=== PATIENT | female | born 1950 | race Caucasian/White ===

== ENCOUNTER 2018-09-07 15:13 | Emergency (ER) | payer MEDICARE, OTHER ==
[2018-09-07] MEDS ORDERED: Iopamidol 612 MG/ML 100 ML Bottle IVPUSH ONE (15:27)
[2018-09-07] MEDS ORDERED: Ondansetron 4 MG/2 ML SDV IV ONE (15:29)
[2018-09-07] MEDS ORDERED: Morphine 2 MG/ML Syringe IVPUSH ONE (15:29)
--- NOTE | 2018-09-07 15:42 | EDM.PDOC ---
ED HPI GENERAL MEDICAL PROBLEM - General Chief Complaint: Abdominal Pain Stated Complaint: ABDOMINAL PAIN Time Seen by Provider: 09/07/18 15:32 Source of Information: Reports: Patient, EMS History Limitations: Reports: No Limitations - History of Present Illness INITIAL COMMENTS - FREE TEXT/NARRATIVE: developed sudden onset generalized abd pain while cleaning bathroom, wasn't mixing any chemicals or straining, had to lay on floor on right side which is more comfortable. has blood clots and being Tx @ [facility] by haematology with xaralto, last visit was told clot extending up to her flank area. has no GB and had total hysterectomy and donated one kidney but still has appy. Abdominal Pain Score (Numeric/FACES): 10 - Related Data Allergies Allergy/AdvReac Type Severity Reaction Status Date / Time No Known Allergies Allergy Verified 09/07/18 15:15 Home Meds: Home Meds Multivitamin [Multi Vitamin Daily] 1 each PO DAILY 12/19/13 [History] Calcium Carbonate/Vitamin D3 [Calcium 500 + Vit D 200 Tablet] 1 tab PO BID 10/27 [History] Cholecalciferol (Vitamin D3) [Vitamin D3] 400 intnl unit PO DAILY 10/27/14 [ History] Ibuprofen [Advil] 200 mg PO DAILY 10/27/14 [History] Simvastatin [Zocor] 10 mg PO DAILY 10/27/14 [History] Rivaroxaban [Xarelto] 20 mg PO DAILY 09/07/18 [History] Past Medical History Cardiovascular History: Reports: High Cholesterol, Other (See Below) Other Cardiovascular History: blood clot December 2017 that ran from left foot up to left flank. - Past Surgical History GI Surgical History: Reports: Other (See Below) Other GI Surgeries/Procedures: donated one kidney Social & Family History - Tobacco Use Smoking Status *Q: Current Every Day Smoker Years of Tobacco use: 14 Packs/Tins Daily: 0.5 - Caffeine Use Caffeine Use: Reports: Soda - Recreational Drug Use Recreational Drug Use: No - Living Situation & Occupation Living situation: Reports: , with Family Occupation: Employed ED ROS GENERAL - Review of Systems Review Of Systems: ROS reveals no pertinent complaints other than HPI. ED EXAM, GI/ABD - Physical Exam Exam: See Below Exam Limited By: No Limitations General Appearance: Alert, WD/WN, Moderate Distress, Other (pain) Ears: Hearing Grossly Normal Throat/Mouth: Normal Voice, No Airway Compromise Head: Atraumatic Neck: Non-Tender, Full Range of Motion Respiratory/Chest: No Respiratory Distress Cardiovascular: Regular Rate, Rhythm GI/Abdominal Exam: Guarding, Tender, Other (generalized, ). No: Distended, Rigid, Rebound Neurological: Alert, Oriented, Normal Cognition, No Motor/Sensory Deficits Psychiatric: Tearful Skin Exam: Warm, Dry, Normal Color Lymphatic: No Adenopathy Course - Vital Signs Last Recorded V/S: Last Vital Signs Temp 37.3 C 09/07/18 15:15 Pulse 81 09/07/18 17:02 Resp 16 09/07/18 17:02 BP 140/77 09/07/18 17:02 Pulse Ox 100 09/07/18 17:02 - Orders/Labs/Meds Orders: Active Orders 24 hr Category Date Time Status EKG 12 Lead [EKG Documentation Completion] [RC] STAT Care 09/07/18 15:43 Active AMYLASE [CHEM] Stat Lab 09/07/18 15:29 Received LIPASE [CHEM] Stat Lab 09/07/18 15:29 Received Labs: Laboratory Tests 09/07/18 09/07/18 09/07/18 Range/Units 15:29 15:29 15:29 WBC 9.1 (5.0-10.0) 10^3/uL RBC 4.77 (4.2-5.4) 10^6/uL Hgb 14.6 (12.0-16.0) g/dL Hct 41.4 (37.0-47.0) % MCV 86.8 (80-100) fL MCH 30.6 (27.0-34.0) pg MCHC 35.3 H (33.0-35.0) g/dL Plt Count 168 (150-450) 10^3/uL Neut % (Auto) 78.2 H (42.2-75.2) % Lymph % (Auto) 12.5 L (20.5-50.1) % Sandoval % (Auto) 7.4 (2-8) % Eos % (Auto) 1.7 (1.0-3.0) % Baso % (Auto) 0.2 (0.0-1.0) % PT 10.2 (9.0-12.0) SEC INR 1.0 (0.9-1.2) APTT 28.2 (22.0-34.0) SEC D-Dimer, Quantitative (0-400) ng/mL Sodium 140 (135-145) mmol/L Potassium 3.8 (3.6-5.0) mmol/L Chloride 106 (101-111) mmol/L Carbon Dioxide 23.0 (21.0-31.0) mmol/L Anion Gap 14.8 BUN 21 H (7-18) mg/dL Creatinine 1.3 (0.6-1.3) mg/dL Est Cr Clr Drug Dosing 38.77 mL/min Estimated GFR (MDRD) 41 BUN/Creatinine Ratio 16.15 Glucose 99 (74-105) mg/dL Calcium 9.3 (8.4-10.2) mg/dl Total Bilirubin 0.9 (0.2-1.0) mg/dL AST 143 H (10-42) IU/L ALT 70 H (10-60) IU/L Alkaline Phosphatase 72 (42-121) IU/L Troponin I < 0.02 (0.00-0.02) ng/ml Total Protein 6.5 L (6.7-8.2) g/dl Albumin 3.9 (3.2-5.5) g/dl Globulin 2.6 Albumin/Globulin Ratio 1.50 03/11/19 Range/Units 15:29 WBC (5.0-10.0) 10^3/uL RBC (4.2-5.4) 10^6/uL Hgb (12.0-16.0) g/dL Hct (37.0-47.0) % MCV (80-100) fL MCH (27.0-34.0) pg MCHC (33.0-35.0) g/dL Plt Count (150-450) 10^3/uL Neut % (Auto) (42.2-75.2) % Lymph % (Auto) (20.5-50.1) % Sandoval % (Auto) (2-8) % Eos % (Auto) (1.0-3.0) % Baso % (Auto) (0.0-1.0) % PT (9.0-12.0) SEC INR (0.9-1.2) APTT (22.0-34.0) SEC D-Dimer, Quantitative < 100 (0-400) ng/mL Sodium (135-145) mmol/L Potassium (3.6-5.0) mmol/L Chloride (101-111) mmol/L Carbon Dioxide (21.0-31.0) mmol/L Anion Gap BUN (7-18) mg/dL Creatinine (0.6-1.3) mg/dL Est Cr Clr Drug Dosing mL/min Estimated GFR (MDRD) BUN/Creatinine Ratio Glucose (74-105) mg/dL Calcium (8.4-10.2) mg/dl Total Bilirubin (0.2-1.0) mg/dL AST (10-42) IU/L ALT (10-60) IU/L Alkaline Phosphatase (42-121) IU/L Troponin I (0.00-0.02) ng/ml Total Protein (6.7-8.2) g/dl Albumin (3.2-5.5) g/dl Globulin Albumin/Globulin Ratio Meds: Medications Discontinued Medications Generic Name Dose Route Start Last Admin Trade Name Freq PRN Reason Stop Dose Admin Hydromorphone HCl 1 mg 09/07/18 16:15 09/07/18 16:29 Dilaudid IVPUSH 09/07/18 16:16 1 mg ONETIME ONE Administration Iopamidol 100 ml 09/07/18 15:27 Isovue-300 (61%) IVPUSH 09/07/18 15:28 ONETIME ONE Morphine Sulfate 2 mg 09/07/18 15:29 09/07/18 15:38 Morphine IVPUSH 09/07/18 15:30 2 mg ONETIME ONE Administration Ondansetron HCl 4 mg 09/07/18 15:29 09/07/18 15:36 Zofran IV 09/07/18 15:30 4 mg ONETIME ONE Administration - Re-Assessments/Exams Free Text/Narrative Re-Assessment/Exam: 09/07/18 17:[address] Rojas @ who kindly accepted pt. Departure - Departure Time of Disposition: 17:25 Disposition: DC/Tfer to Acute Hospital 02 Condition: Fair Clinical Impression: Pancreatitis Qualifiers: Chronicity: acute Pancreatitis type: unspecified pancreatitis type Acute pancreatitis complication: unspecified Qualified Code(s): K85.90 - Acute pancreatitis without necrosis or infection, unspecified - Discharge Information Forms: Interfacility Transfer EMTALA - My Orders Last 24 Hours: My Active Orders 09/07/18 15:29 AMYLASE [CHEM] Stat LIPASE [CHEM] Stat 09/07/18 15:43 EKG 12 Lead [EKG Documentation Completion] [RC] STAT - Assessment/Plan Last 24 Hours: My Active Orders 09/07/18 15:29 AMYLASE [CHEM] Stat LIPASE [CHEM] Stat 09/07/18 15:43 EKG 12 Lead [EKG Documentation Completion] [RC] STAT
[2018-09-07 16:07] LABS: ANION GAP 14.8; CHLORIDE,CL 106 mmol/L (101-111); SODIUM,NA 140 mmol/L (135-145)
[2018-09-07] MEDS ORDERED: HYDROmorphone 1 MG/ML Syringe IVPUSH ONE ×2 (16:15→17:56)
--- NOTE | 2018-09-07 16:49 | CT ---
Clinical history: 68-year-old 160 pound diabetic female smoker with severe abdominal/flank pain, coronary artery disease (stents), history breast cancer (right mastectomy), hysterectomy and surgical removal left kidney (donated brother 1984) .... Now has stage III chronic kidney disease and being treated for lower extremity "DVT". Scan technique: Volume acquisition of data from the abdomen and pelvis obtained without oral contrast on emergency basis during intravenous ministration 75 cc nonionic Isovue contrast (3.0 cm/s via injector) while patient lying supine on the Siemens multi slice scanner [place], [place]. All data archived in the PACS system for storage, reformatting axial/sagittal/coronal planes and study. Interpretation: 1. Diseased gallbladder (dependent intraluminal stones) with what appears to be an associated mild ileus. No abnormal dilatation of the intra or extra hepatic biliary duct and normal-appearing pancreas. Liver and spleen unremarkable. No hernias. 2. Densely calcified "cast" normal caliber aortoiliac vessels i.e. no sign of aneurysm or dissection. No bowel ischemia. 3. Left nephrectomy. Solitary tiny subcentimeter cyst upper pole cortex remaining right kidney. No solid renal cortical mass lesion, nephrolithiasis or signs of obstructive uropathy on the right. Symmetrically distended normal urinary bladder. 4. No abdominal or pelvic mass lesion and no sign of mesenteric or retroperitoneal lymphadenopathy. No inflammatory "dirty" peritoneal fat. No ascites or free intraperitoneal air. Surgically absent uterus and no adnexal mass lesions. 5. Osteopenia and mildly exaggerated lumbar lordosis with some scattered spondylosis. No fracture/dislocation lumbar spine. 6. Normal cardiac silhouette. Lung bases clear. Right mastectomy. 7. No sign of pelvic, retroperitoneal, or flank hematoma. No current evidence of acute intraperitoneal bleed. CONCLUSION: Cholelithiasis. Left nephrectomy. Right mastectomy. Abnormal atheromatous disease. Hysterectomy.
[2018-09-07 17:02] VITALS: BP 140/77
== END 2018-09-07 18:14 ==
LOC: DL.ED 15:13
DX: K85.90 Acute pancreatitis without necrosis or infection, unspecified (principal); F17.210 Nicotine dependence, cigarettes, uncomplicated; Z79.899 Other long term (current) drug therapy; Z79.01 Long term (current) use of anticoagulants
CPT/HCPCS: 36415; 74177; 80053; 82150; 83690; 84484; 85025; 85379; 85610; 85730; 93005; 96374; 96375; 96376; 99285; J1170; J2270; J2405; Q9967

== ENCOUNTER 2019-04-28 01:10 | Emergency (ER) | payer MEDICARE, OTHER ==
[2019-04-28] MEDS ORDERED: Acetaminophen/HYDROcodone 325-10 MG Tab PO ONE (01:11)
[2019-04-28] MEDS ORDERED: Cyclobenzaprine 10 MG Tab PO ONE ×2 (01:11→01:24)
[2019-04-28 01:19] VITALS: PULSE 89
[2019-04-28] MEDS ORDERED: HYDROmorphone 1 MG/ML Syringe IVPUSH ONE (01:23)
[2019-04-28 02:14] VITALS: BP 167/74
[2019-04-28] MEDS ORDERED: Acetaminophen/HYDROcodone 325-10 MG Tab ONE (02:24)
[2019-04-28] MEDS ORDERED: Cyclobenzaprine 10 MG Tab ONE (02:24)
--- NOTE | 2019-04-28 02:32 | EDM.PDOC ---
ED HPI GENERAL MEDICAL PROBLEM - General Chief Complaint: Neck Problem Stated Complaint: NECK PAIN Time Seen by Provider: 04/28/19 01:20 Source of Information: Reports: Patient History Limitations: Reports: No Limitations - History of Present Illness INITIAL COMMENTS - FREE TEXT/NARRATIVE: ED ambulatory with spouse with c/o sever left neck pain, worse with movement. Woke from sleep with pain, Radiates from base of scalp to left shoulder, no numbness or tingling., No weakness noted. No recent change in activity Remote hx C5 surgery secondary to injury. No problems since. . Left Neck Pain Score (Numeric/FACES): 6 - Related Data Allergies Allergy/AdvReac Type Severity Reaction Status Date / Time No Known Allergies Allergy Verified 04/28/19 01:16 Home Meds: Home Meds Multivitamin [Multi Vitamin Daily] 1 each PO DAILY 12/19/13 [History] Calcium Carbonate/Vitamin D3 [Calcium 500 + Vit D 200 Tablet] 1 tab PO BID 10/27 [History] Cholecalciferol (Vitamin D3) [Vitamin D3] 400 intnl unit PO DAILY 10/27/14 [ History] Ibuprofen [Advil] 200 mg PO DAILY 10/27/14 [History] Simvastatin [Zocor] 10 mg PO DAILY 10/27/14 [History] Rivaroxaban [Xarelto] 20 mg PO DAILY 09/07/18 [History] Past Medical History HEENT History: Reports: Impaired Vision Cardiovascular History: Reports: High Cholesterol, Other (See Below) Other Cardiovascular History: blood clot December 2017 that ran from left foot up to left flank. [employer]END[employer] History: Reports: Oncologic (Cancer) History: Reports: Breast - Past Surgical History GI Surgical History: Reports: Other (See Below) Other GI Surgeries/Procedures: donated one kidney Female Surgical History: Reports: Hysterectomy Social & Family History - Family History Family Medical History: Noncontributory - Tobacco Use Smoking Status *Q: Current Every Day Smoker Years of Tobacco use: 51 Packs/Tins Daily: 0.5 Used Tobacco, but Quit: No Second Hand Smoke Exposure: Yes - Caffeine Use Caffeine Use: Reports: Coffee, Soda - Recreational Drug Use Recreational Drug Use: No - Living Situation & Occupation Living situation: Reports: , with Family Occupation: Employed ED ROS GENERAL - Review of Systems Review Of Systems: ROS reveals no pertinent complaints other than HPI. ED EXAM, UPPER BACK/NECK PAIN - Physical Exam Exam: See Below Exam Limited By: No Limitations General Appearance: Alert, Severe Distress, Thin Eye Exam: Bilateral Eye: EOMI Ears Exam: Normal External Exam Nose Exam: Normal Inspection Throat/Mouth Exam: Normal Inspection, Normal Lips, Normal Voice Head Exam: Atraumatic, Normocephalic Neck Exam: Muscle Spasm, Paraspinous Muscle Tender, Stiff Neck, Tenderness, Tender Lateral. No: Spinous Processes Tender, Tender Midline Nexus Criteria: No: Posterior, Midline Cervical Tenderness, Evidence of Intoxication, Altered Level of Consciousness, Focal Neurological Deficit, Painful Distraction Injuries Cardiovascular/Respiratory: Regular Rate, Rhythm, Normal Peripheral Pulses GI/Abdominal: Soft Back Exam: Full Range of Motion Extremities: Normal Inspection Neurologic: No Motor/Sensory Deficits Psychiatric: Normal Affect Skin Exam: Normal Color Course - Vital Signs Last Recorded V/S: Last Vital Signs Temp 98.6 F 04/28/19 01:18 Pulse 89 04/28/19 01:18 Resp 20 04/28/19 01:18 BP 167/74 H 04/28/19 02:14 Pulse Ox 95 04/28/19 01:18 - Orders/Labs/Meds Meds: Medications Discontinued Medications Generic Name Dose Route Start Last Admin Trade Name Freq PRN Reason Stop Dose Admin Cyclobenzaprine HCl 10 mg 04/28/19 01:24 04/28/19 01:30 Flexeril PO 04/28/19 01:25 10 mg ONETIME ONE Administration Hydromorphone HCl 1 mg 04/28/19 01:23 04/28/19 01:31 Dilaudid IVPUSH 04/28/19 01:24 1 mg ONETIME ONE Administration - Re-Assessments/Exams Free Text/Narrative Re-Assessment/Exam: 04/28/19 02:33 Mild discomfort with movement. Departure - Departure Time of Disposition: 02:26 Disposition: Home, Self-Care 01 Condition: Good Clinical Impression: Neck muscle spasm - Discharge Information *PRESCRIPTION DRUG MONITORING PROGRAM REVIEWED*: No *COPY OF PRESCRIPTION DRUG MONITORING REPORT IN PATIENT JOSÉ: No Instructions: Muscle Cramps and Spasms, [id number] Additional Instructions: warm pack for muscle spasm increase fluids light activity today No driving today or while taking medication for muscle spasms tylenol 650mg every 4-6 hours as needed for pain flexeril 10mg 1/2 to one every 8 hours as needed for muscle spasm clinic follow up this week
== END 2019-04-28 02:34 | disposition home or self-care (01) ==
LOC: DL.ED 01:10
DX: M62.838 Other muscle spasm (principal); E78.00 Pure hypercholesterolemia, unspecified; F17.210 Nicotine dependence, cigarettes, uncomplicated; Z79.899 Other long term (current) drug therapy
CPT/HCPCS: 96374; 99282; 99283; A9270; J1170

== ENCOUNTER 2024-03-31 09:54 | Day surgery (SDC) | payer MEDICARE, OTHER ==
[2024-03-31] MEDS ORDERED: Ondansetron 4 MG/2 ML SDV IVPUSH PRN (10:15)
[2024-03-31] MEDS ORDERED: Acetaminophen/Codeine 300-30 MG Tab PO PRN (10:15)
[2024-03-31] MEDS ORDERED: Acetaminophen 325 MG Tab PO PRN (10:15)
[2024-03-31] MEDS: Sodium Chloride 0.9% 10 ML Syringe FLUSH PRN (10:19)
[2024-03-31] MEDS: Proparacaine 0.5% Ophth Soln 15 ML Bottle EYELF ONE ×2 (10:21→10:57)
[2024-03-31] MEDS: Moxifloxacin 0.5% Ophth Soln 3 ML Bottle EYELF ONE (10:22)
[2024-03-31] MEDS: Povidone-Iodine 5% Sterile Ophth Soln 30 ML Bottle EYELF ONE ×2 (10:23→10:57)
[2024-03-31] MEDS: Tropicamide 1% Ophth Soln 15 ML Bottle EYELF ONE (10:24)
[2024-03-31] MEDS: Phenylephrine 10% Ophth Soln 5 ML Bot EYELF ONE (10:25)
[2024-03-31] MEDS: Timolol Maleate 0.5% Ophth Soln 5 ML Bottle EYELF ONE (10:26)
[2024-03-31] MEDS: Cataract Ophth Solution EYELF ONE (10:27)
[2024-03-31] MEDS: Diclofenac Sodium 0.1% Ophth Soln 5 ML Bottle EYELF ONE (10:57)
[2024-03-31] MEDS: Apraclonidine 0.5% Ophth Soln 5 ML Bot EYELF ONE (10:57)
[2024-03-31] MEDS: Lidocaine 1% 30 ML SDV ONE (11:08)
[2024-03-31] MEDS: Vancomycin 500 MG SDV EYELF ONE (11:09)
[2024-03-31] MEDS: Dexamethasone/Neomycin/Polymyxin B Ophth Oint 3.5 GM Tube EYELF ONE (11:11)
[2024-03-31 12:38] VITALS: BP 132/64; PULSE 49
== END 2024-03-31 11:45 | disposition home or self-care (01) ==
LOC: DL.SDS 09:54
PROVIDERS: ATTEND Ophthalmology
DX: H25.812 Combined forms of age-related cataract, left eye (principal); I12.9 Hypertensive chronic kidney disease with stage 1 through stage 4 chronic kidney disease, or unspecified chronic kidney disease; N18.32 Chronic kidney disease, stage 3b; E78.5 Hyperlipidemia, unspecified; R73.03 Prediabetes; R25.1 Tremor, unspecified; F17.210 Nicotine dependence, cigarettes, uncomplicated; Z79.899 Other long term (current) drug therapy; Z88.8 Allergy status to other drugs, medicaments and biological substances
CPT/HCPCS: 66984; A9270; J3370; V2632; J3490